=== PATIENT | female | born 1970 | race Caucasian/White ===

== ENCOUNTER 2016-12-20 18:09 | Emergency (ER) | payer OTHER ==
[~2016-12-20] VITALS: Ht 157.5 cm; Wt 95.0 kg
[~2016-12-20 18:09] MED LIST: ALLO300T PO; GOUT MEDICINE; SPIR100T2 PO
[2016-12-20 18:17] VITALS: BP 129/92
[2016-12-20] MEDS ORDERED: KETOROLAC 30 MG/1 ML ONE (18:28)
[2016-12-20] MEDS ORDERED: DIAZEPAM 5 MG TABLET ONE (18:28)
[2016-12-20] MEDS ORDERED: DIAZEPAM 5 MG TABLET PO ONE (18:30)
[2016-12-20] MEDS ORDERED: KETOROLAC 30 MG/1 ML IM ONE (18:30)
[2016-12-20] MEDS ORDERED: PLEASE ENTER HEIGHT AND WEIGHT MC SCH (18:30)
== END 2016-12-20 19:29 | disposition home or self-care (01) ==
LOC: ED 19:15
DX: M54.5 Low back pain (principal); M54.6 Pain in thoracic spine
CPT/HCPCS: 71010; 73502; 96372; 99284; J1885

== ENCOUNTER → 2017-02-09 | Outpatient (CLI) | payer OTHER | LOC: CFH 10:59 | PROVIDERS: ATTEND Family Medicine | DX: R05 Cough (principal) | CPT/HCPCS: 71020 ==

== ENCOUNTER → 2017-03-02 | Outpatient (CLI) | payer OTHER | END | disposition home or self-care (01) | LOC: CFH 10:05 | PROVIDERS: ATTEND Family Medicine | DX: Z12.31 Encounter for screening mammogram for malignant neoplasm of breast (principal) | CPT/HCPCS: 77063; G0202 ==

== ENCOUNTER 2017-07-16 21:54 | Emergency (ER) | payer OTHER ==
[~2017-07-16] VITALS: Ht 160 cm; Wt 97.4 kg
[2017-07-16 21:57] VITALS: BP 122/81
== END 2017-07-16 23:44 | disposition home or self-care (01) ==
LOC: ED 23:15
DX: S39.012A Strain of muscle, fascia and tendon of lower back, initial encounter (principal); X58.XXXA Exposure to other specified factors, initial encounter; Y93.89 Activity, other specified; Y92.89 Other specified places as the place of occurrence of the external cause; Y99.8 Other external cause status
CPT/HCPCS: 72110; 99284

== ENCOUNTER 2018-02-23 17:45 | Emergency (ER) | payer OTHER ==
[~2018-02-23] VITALS: Ht 160 cm; Wt 98.9 kg
[~2018-02-23 17:45] MED LIST changes: -SPIR100T2 PO; +SPIR100T4 PO
[2018-02-23 18:21] VITALS: BP 146/64
== END 2018-02-23 20:31 | disposition home or self-care (01) ==
LOC: ED 19:50
DX: J00 Acute nasopharyngitis [common cold] (principal); J01.90 Acute sinusitis, unspecified; B97.89 Other viral agents as the cause of diseases classified elsewhere; G43.909 Migraine, unspecified, not intractable, without status migrainosus
CPT/HCPCS: 71046; 99283

== ENCOUNTER → 2018-03-24 | Outpatient (CLI) | payer OTHER | END | disposition home or self-care (01) | LOC: CFH 07:10 → EDSTATUS 07:30 | PROVIDERS: ATTEND Family Medicine | DX: Z12.31 Encounter for screening mammogram for malignant neoplasm of breast (principal) | CPT/HCPCS: 77063; 77067 ==

== ENCOUNTER 2019-01-06 16:22 | Emergency (ER) | payer MEDICAID, OTHER ==
[~2019-01-06] VITALS: Ht 160 cm; Wt 95.4 kg
--- NOTE | 2019-01-06 16:42 | NUR ---
PT RECENTLY DX W/ TRICHOMONAS AND WAS TREATED FOR IT BUT WAS STILL HAVING SYMPTOMS OF BURNING AND THOUGHT SHE HAD A YEAST INFECTION. WENT TO [facility] AND GOT A GENERIC BRAND OF MICONAZOLE AND SHE TOOK IT TODAY AT 1400 AND NOTICED A REACTION OF BURNING AND ITCHING "AND IT FEELS LIKE MY INSIDES ARE ALL SWOLLEN". PT RESTING ON [facility]. WARM BLANKET PROVIDED.
[2019-01-06] MEDS ORDERED: DIPHENHYDRAMINE 50 MG/ML, 1ML IM ONE (17:00)
[2019-01-06] MEDS ORDERED: DIPHENHYDRAMINE 50 MG/ML, 1ML ONE (17:07)
[2019-01-06 17:37] VITALS: BP 130/73
--- NOTE | 2019-01-06 17:45 | NUR ---
PT RESTING ON GURNEY. NADN. [place].
[2019-01-06 17:56] LABS: CLUE CELLS NONE SEEN (NONE SEEN); WET PREP WBCS FEW (FEW)
--- NOTE | 2019-01-06 18:01 | NUR ---
PT CHART REVIEWED AND PLACED FOR RECHECK.
== END 2019-01-06 18:35 | disposition home or self-care (01) ==
LOC: ED 16:45
DX: N76.0 Acute vaginitis (principal); T78.49XA Other allergy, initial encounter; R10.2 Pelvic and perineal pain; E11.8 Type 2 diabetes mellitus with unspecified complications
CPT/HCPCS: 87210; 87808; 96372; 99283; J1200; 96374; 96375; 99284

== ENCOUNTER → 2019-10-26 | Outpatient (CLI) | payer OTHER | END | disposition home or self-care (01) | LOC: CFH 10:36 | PROVIDERS: ATTEND Family Medicine | DX: Z12.31 Encounter for screening mammogram for malignant neoplasm of breast (principal) | CPT/HCPCS: 77063; 77067 ==

== ENCOUNTER 2020-08-25 07:33 | Observation (INO) | payer OTHER ==
[~2020-08-25] VITALS: Ht 160 cm; Wt 100.1 kg
[2020-08-25] MEDS ORDERED: MONT10TA17 PO (10:15)
[2020-08-25] MEDS ORDERED: NITROGLYCERIN 0.4 MG BOTTLE (25 TABS) SL PRN (11:00)
[2020-08-25 11:16] VITALS: BP 117/81
[2020-08-25] MEDS ORDERED: PLEASE ENTER ALLERGIES MC SCH (11:30)
[2020-08-25] MEDS ORDERED: PLEASE ENTER HEIGHT AND WEIGHT MC SCH (11:30)
[2020-08-25] MEDS ORDERED: ENALAPRILAT 1.25 MG/ML, 2ML IVPush PRN (12:00)
[2020-08-25] MEDS ORDERED: ONDANSETRON 2MG/ML, 2ML IVPush PRN (12:00)
[2020-08-25] MEDS ORDERED: ENOXAPARIN 40 MG/0.4 ML SQ SCH (12:00)
[2020-08-25] MEDS ORDERED: morphine SULFATE 10 MG/ML, 1ML IVPush PRN (12:00)
[2020-08-25] MEDS ORDERED: ACETAMINOPHEN 325 MG TABLET PO PRN (12:00)
[2020-08-25] MEDS ORDERED: POLYETHYLENE GLYCOL 17 GM PACKET PO PRN (12:00)
[2020-08-25 12:42] VITALS: BP 113/76
[2020-08-25 12:53] LABS: TROPONIN I < 0.015 ng/mL (0.000-0.045)
[2020-08-25 16:17] LABS: BASOPHILS % (AUTO) 1 % (0-1); EOSINOPHILS % (AUTO) 1 % (1-7); LYMPHOCYTES % (AUTO) 22 % (22-44); MEAN CORPUSCULAR HEMOGLOBIN 31.7 pg (27.0-34.8); MEAN CORPUSCULAR HGB CONC 34.2 g/dL (32.4-35.8); MEAN PLATELET VOLUME 7.3 fL (7.4-10.4); MONOCYTES % (AUTO) 5 % (2-9); NEUTROPHILS % (AUTO) 71 % (42-75); PLATELET COUNT 332 x10^3/uL (130-400); RED BLOOD COUNT 4.47 x10^6/uL (3.82-5.3); RED CELL DISTRIBUTION WIDTH 13.5 % (9.6-15.2)
[2020-08-25 16:32] LABS: TROPONIN I < 0.015 ng/mL (0.000-0.045)
[2020-08-25 16:34] LABS: ALANINE AMINOTRANSFERASE 34 U/L (12-78); ALBUMIN 3.4 g/dL (3.4-5.0); ANION GAP 7 mmol/L (5-15); CHLORIDE 108 mmol/L (98-107); CREATININE 0.53 mg/dL (0.55-1.02)
[2020-08-25 16:35] LABS: TOTAL PROTEIN 7.4 g/dL (6.4-8.2)
[2020-08-25 16:45] LABS: ALKALINE PHOSPHATASE 61 U/L (45-117); BILIRUBIN,TOTAL 0.6 mg/dL (0.2-1.0); CALCIUM 9.1 mg/dL (8.5-10.1)
[2020-08-25 16:46] LABS: CHOLESTEROL, TOTAL 235 mg/dL (140-239); LDL CHOLESTEROL,CALCULATED 60 mg/dL (54-169); TRIGLYCERIDES 179 mg/dL (50-200); VLDL CHOLESTEROL 36 mg/dL (0-25)
[2020-08-25 17:49] LABS: CHOL/HDL RATIO 3.8; HDL CHOL % 26 % (28-40); HDL CHOLESTEROL (DIRECT) 56 mg/dL (40-60); LDL/HDL RATIO 2.4 (0.5-3.0)
[2020-08-25] MEDS ORDERED: MELATONIN 5 MG TABLET PO PRN (21:00)
[2020-08-26] MEDS ORDERED: SPIRONOLACTONE 100 MG TABLET PO SCH (09:00)
== END 2020-08-25 18:28 | disposition home or self-care (01) ==
LOC: 5SO 08:50 → INTOOBSV 08:50
PROVIDERS: ADMIT Family Medicine; ATTEND Family Medicine
DX: R07.89 Other chest pain (principal); R00.2 Palpitations; R79.89 Other specified abnormal findings of blood chemistry; G47.33 Obstructive sleep apnea (adult) (pediatric); E66.9 Obesity, unspecified; Z79.899 Other long term (current) drug therapy
CPT/HCPCS: 36415; 80053; 80061; 83735; 84100; 84443; 84484; 85025; 93005; 93017; 93306; 93356; 96372; G0378; J1650

== ENCOUNTER 2020-09-11 16:51 | Emergency (ER) | payer OTHER ==
[~2020-09-11 16:51] MED LIST changes: +MONT10TA17 PO
--- NOTE | 2020-09-11 18:26 | NUR ---
SORTER LAUNDRY ARTICLES: PT TO ROOM FROM [facility]
--- NOTE | 2020-09-11 18:33 | NUR ---
PT C/O KNOT UNDER LEFT ARM IN THE ARMPIT. KNOW STARTED FORMING 2 DAYS AGO. SITE HURTS TO TOUCH OR MOVE. PT ALSO STATES IT WAS WARM TO TOUCH LAST NIGHT. PT HX OF CYSTS UNDER THAT ARM. PT TO ROOM WITH STEADY GAIT AND POSTIONED TO COMFORT IN BED. PT ATTACHED TO MONITORS. VSS. [place].
--- NOTE | 2020-09-11 18:54 | NUR ---
BEDSIDE REPORT RECEIVED FROM TANYA RN, PT CARE TRANSFERRED AT THIS TIME. PT DENIES ADDITIONAL QUESTIONS OR NEEDS, BED IN LOWEST, RAILS ENGAGED, CALL LIGHT ON LAP, AWAITING ERP ORDERS, WCTM.
[2020-09-11] MEDS ORDERED: OXYcodone/APAP 5/325MG TABLET PO ONE (20:00)
[2020-09-11] MEDS ORDERED: OXYcodone/APAP 5/325MG TABLET ONE (20:03)
--- NOTE | 2020-09-11 20:08 | NUR ---
PT MEDICATED PER MAR FOR PAIN, NAD, NO CHANGE IN CONDITION AT THIS TIME, VSS, RESTING WITH BED IN LWOEST, RAILS ENGAGED, CALL LIGHT ON LAP, WCTM. WAITING FOR US/LAB RESULTS.
[2020-09-11 20:13] LABS: BASOPHILS % (AUTO) 1 % (0-1); EOSINOPHILS % (AUTO) 1 % (1-7); LYMPHOCYTES % (AUTO) 18 % (22-44); MEAN CORPUSCULAR HEMOGLOBIN 31.7 pg (27.0-34.8); MONOCYTES % (AUTO) 5 % (2-9); NEUTROPHILS % (AUTO) 76 % (42-75); PLATELET COUNT 377 x10^3/uL (130-400); RED BLOOD COUNT 4.71 x10^6/uL (3.82-5.3); RED CELL DISTRIBUTION WIDTH 13.1 % (9.6-15.2)
[2020-09-11 20:25] LABS: ALANINE AMINOTRANSFERASE 26 U/L (12-78); ALBUMIN 3.3 g/dL (3.4-5.0); ANION GAP 4 mmol/L (5-15); CALCIUM 8.9 mg/dL (8.5-10.1); CHLORIDE 104 mmol/L (98-107); CREATININE 0.61 mg/dL (0.55-1.02)
[2020-09-11 20:28] LABS: ALKALINE PHOSPHATASE 70 U/L (45-117); BILIRUBIN,TOTAL 0.4 mg/dL (0.2-1.0); TOTAL PROTEIN 7.4 g/dL (6.4-8.2)
--- NOTE | 2020-09-11 21:35 | NUR ---
Patient is resting comfortably in bed. Bed in lowest, rails engaged, call light on lap. Vital Signs within normal limits. WCTM. WAITING FOR US READ.
--- NOTE | 2020-09-11 23:16 | NUR ---
Patient is resting comfortably in bed. Bed in lowest, rails engaged, call light on lap. Vital Signs within normal limits. WCTM.
[2020-09-12 00:20] VITALS: BP 100/67
--- NOTE | 2020-09-12 00:20 | NUR ---
Patient given discharge instructions and they have confirmed that they understand the instructions. Patient ambulatory with steady gait. NAD, all questions answered appropriately, denies additional needs at this time. No personal belongings left in room after discharge.
== END 2020-09-12 00:22 | disposition home or self-care (01) ==
LOC: ED 21:24
DX: I89.0 Lymphedema, not elsewhere classified (principal); R59.0 Localized enlarged lymph nodes; E11.9 Type 2 diabetes mellitus without complications; G43.909 Migraine, unspecified, not intractable, without status migrainosus
CPT/HCPCS: 36415; 76641; 80053; 85025; 99285